=== PATIENT | female | born 1965 | race Caucasian/White ===

== ENCOUNTER 2024-12-30 12:48 | Emergency (ER) | payer MEDICARE, OTHER ==
[~2024-12-30] VITALS: Ht 170.2 cm; Wt 65.9 kg
[2024-12-30 13:07] VITALS: TEMP 99.5
[2024-12-30 14:57] VITALS: BP 152/92; PULSE 93; RESP 18; O2SAT 98
[2024-12-30] MEDS: ACETAMINOPHEN 500 MG TABLET PO ONE (16:25)
== END 2024-12-30 17:00 | disposition home or self-care (01) ==
LOC: EMS 12:48
DX: R46.89 Other symptoms and signs involving appearance and behavior (principal)
CPT/HCPCS: 99283